=== PATIENT | female | born 1955 | race Caucasian/White ===

== ENCOUNTER 2017-08-21 05:49 | Day surgery (SDC) | payer OTHER ==
[~2017-08-21] VITALS: Ht 157.5 cm; Wt 53.1 kg
[~2017-08-21 05:49] MED LIST: ASPIRIN81 MG; ASTEPRO137 MC1; ATORVASTATIN CA20 MG PO; BONIVA150 MG PO; CALCIUM + D600 MG OR; CINNAMON500 M1 PO; DOXYCYC MONO100 M1 PO; DOXYCYCL HYC100 MG PO; DOXYCYCLINE75 MG PO; DYMISTA1 SPR NAB; ESTRACE VAG0.1 MG/GM VA; FLEXERIL PO; FLONASE NASAL50 MCG; HYDROXYZ HCL25 MG PO; LORATADINE10 M3 PO; MEDDOSEPAK PO; MULT VITAMIN; NASACORT A55 MCG/ACT IN; NASONEX50 MCG/AC; OMNICEF300 MG PO; PATANASE0.6 %; PRAVASTATIN40 MG PO; PROAIR HFA IN; SINGULAIR PO; TOBRAMYCIN0.3 % OP; TRAMADOL HCL50 MG PO; ULTRAM50 M1 PO; VALTREX1 GM PO; VIT E SOLUBL400 UNIT OR; XANAX0.25 MG; XANAX0.25 MG PO; ZOFRAN ODT8 MG OR; ZOFRAN4 MG/TAB PO; [UNRECOGNIZED DRUG - OTHER]; [UNRECOGNIZED DRUG - OTHER] PO; [UNRECOGNIZED DRUG - REMARK]
[2017-08-21 08:24] VITALS: BP 106/58
== END 2017-08-21 08:30 | disposition home or self-care (01) | DRG 951 ==
LOC: ENDO 05:49
PROVIDERS: ATTEND Internal Medicine Gastroenterology
PROC: 0DBN8ZX Excision of Sigmoid Colon, Via Natural or Artificial Opening Endoscopic, Diagnostic (ICD-10-PCS; principal; 2017-08-21)
DX: Z12.11 Encounter for screening for malignant neoplasm of colon (principal); K63.5 Polyp of colon; K64.8 Other hemorrhoids; K64.4 Residual hemorrhoidal skin tags; K57.30 Diverticulosis of large intestine without perforation or abscess without bleeding; K76.0 Fatty (change of) liver, not elsewhere classified; E78.00 Pure hypercholesterolemia, unspecified; K76.89 Other specified diseases of liver; K21.9 Gastro-esophageal reflux disease without esophagitis; Z86.010 Personal history of colon polyps; Z87.11 Personal history of peptic ulcer disease

== ENCOUNTER 2019-08-22 | Emergency (ER) | payer OTHER ==
[2019-08-22] MEDS ORDERED: LASIX 40 MG TAB40 MG PO (21:01)
[2019-08-22] MEDS ORDERED: POTASSIUM CHLO10 MEQ PO (21:01)
[2019-08-22 21:25] LABS: HEMATOCRIT 41.4 % (37.0-47.0); HEMOGLOBIN 13.9 g/dl (12.0-16.0); IMMATURE GRANULOCYTES 0.4 % (0.0-5.0); MEAN CELL VOLUME 96.1 fL CALC (80.0-100.0); MEAN CORPUSCULAR HGB 32.3 pG CALC (26.0-32.0); MEAN CORPUSCULAR HGB CONC 33.6 g/dL CAL (32.0-36.0); NEUT# 6.2 thou/uL (2.00-7.15); RED BLOOD COUNT 4.31 mill/uL (4.20-5.60); RED CELL DISTRI WIDTH 12.7 % (11.5-15.5); URINE BILIRUBIN - DIPSTICK NEGATIVE (NEGATIVE); URINE BLOOD DIPSTICK TRACE-INTACT (NEGATIVE); URINE COLOR YELLOW; URINE GLUCOSE - DIPSTICK NEGATIVE (NEGATIVE); URINE KETONE NEGATIVE (NEGATIVE); URINE LEUK ESTERASE NEGATIVE (NEGATIVE); URINE NITRITE - DIPSTICK NEGATIVE (Negative); URINE PH 5.5 (4.5-8.0); URINE PROTEIN - DIPSTICK NEGATIVE (NEG-TRACE); URINE SPECIFIC GRAVITY 1.015; URINE UROBILINOGEN - DIPSTICK 0.2 E.U./dL (0.2)
[2019-08-22 21:46] LABS: ALBUMIN 4.6 g/dL (3.2-5.0); ALKALINE PHOSPHATASE 68 u/l (38-126); AMYLASE 69 u/l (30-110); BILIRUBIN, TOTAL 0.8 mg/dL (0.0-1.4); BUN 15 mg/dL (8-23); BUN/CREATININE RATIO 15 (12-20 (CALC)); CARBON DIOXIDE 29 mmol/l (22-30); CHLORIDE 94 mmol/l (95-108); GFR 56 ML/MIN (>=60 (CALC)); GFR FOR AFR.AMER. > 60 ML/MIN (>=60 (CALC)); LIPASE 147 u/l (23-300); SGOT/AST 37 u/l (9-36); TOTAL PROTEIN 7.4 g/dL (6.3-8.2)
[2019-08-22 21:48] LABS: ANION GAP 13 (6-22 (CALC)); POTASSIUM 3.6 mmol/l (3.5-5.1); SODIUM 132 mmol/l (137-146)
[2019-08-22] MEDS ORDERED: PREVACID30 M3 PO (23:50)
[2019-08-22] MEDS ORDERED: FLEXERIL PO (23:50)
[2019-08-22] MEDS ORDERED: ULTRAM50 M1 PO (23:50)
== END 2019-08-23 00:06 | disposition home or self-care (01) | DRG 392 ==
PROVIDERS: Emergency Medicine
DX: K29.70 Gastritis, unspecified, without bleeding (principal); S33.5XXA Sprain of ligaments of lumbar spine, initial encounter; X58.XXXA Exposure to other specified factors, initial encounter
CPT/HCPCS: Q9967

== ENCOUNTER 2022-04-13 14:52 | Emergency (ER) | payer MEDICARE, BC ==
[~2022-04-13 14:52] MED LIST changes: +LASIX 40 MG TAB40 MG PO; +POTASSIUM CHLO10 MEQ PO; +PREVACID30 M3 PO
[2022-04-13 18:35] VITALS: BP 101/57
== END 2022-04-13 18:37 | disposition short-term general hospital (02) ==
LOC: ED 14:52
DX: S81.852A Open bite, left lower leg, initial encounter (principal); S81.851A Open bite, right lower leg, initial encounter; S51.851A Open bite of right forearm, initial encounter; S51.051A Open bite, right elbow, initial encounter; I34.1 Nonrheumatic mitral (valve) prolapse; W54.0XXA Bitten by dog, initial encounter; Y92.007 Garden or yard of unspecified non-institutional (private) residence as the place of occurrence of the external cause